=== PATIENT | male | born 1985 | race Caucasian/White ===

== ENCOUNTER 2017-05-25 14:58 | Emergency (ER) | payer SELFPAY ==
[2017-05-25 16:12] LABS: #Eosinphils 0.2 thou/uL (0.0-0.7); #Lymphocytes 2.9 thou/uL (1.20-3.40); #Monocytes 0.6 thou/uL (0.11-0.59); #Neutrophils 6.7 thou/uL (1.40-6.50); %Basophils 0.4 % (0.0-1.0); %Eosinophils 2.1 % (0.0-10.0); %Lymphocytes 27.7 % (21.0-51.0); %Monocytes 5.7 % (0.0-10.0); Hematocrit 43.6 % (42.0-52.0); Mean Platelet Volume 7.3 fL (7.4-10.4); Red Blood Cell (RBC) Count 4.77 mill/uL (4.70-6.10); White Blood Cell (WBC) Count 10.4 thou/uL (4.8-10.8)
[2017-05-25 16:20] LABS: ALT (SGPT) 41 U/L (8-55); AST (SGOT) 34 U/L (5-34); Alkaline Phosphatase 87 U/L (40-150); Anion Gap 17 mmol/L (10-20); BUN (Urea Nitrogen) 15 mg/dL (8.9-20.6); Bilirubin, Total 0.5 mg/dL (0.2-1.2); Calc. Creatinine Clearance 0 mL/min (70-130); Calcium 9.9 mg/dL (7.8-10.44); Carbon Dioxide 20 mmol/L (22-29); Chloride 104 mmol/L (98-107); Estimated GFR-MDRD 81; Globulin 2.9 g/dL (2.4-3.5); Protein, Total 7.4 g/dL (6.0-8.3)
== END 2017-05-25 17:33 | disposition home or self-care (01) ==
LOC: EDBD 14:58 → ERS 14:58
DX: R56.9 Unspecified convulsions (principal); Z79.899 Other long term (current) drug therapy
CPT/HCPCS: 80053; 85025; 96360